=== PATIENT | female | born 1995 | race African-American/Black ===

== ENCOUNTER 2017-06-21 15:27 | Emergency (ER) | payer BC ==
--- NOTE | 2017-06-21 17:04 | RADIOLOGY REPORT (SQ) ---
EXAM DESCRIPTION: KNEE LEFT 3 VIEWS COMPLETED DATE/TIME: 06/21/2017 4:50 pm REASON FOR STUDY: knee pain from fall COMPARISON: None. NUMBER OF VIEWS: Three views. TECHNIQUE: AP, lateral, and sunrise patella radiographic images acquired of the left knee. LIMITATIONS: None. FINDINGS: MINERALIZATION: Normal. BONES: No dislocation. Mild undulation in the medial femoral condylar articular surface without scle rosis, probable osteochondral injury. JOINT: No effusion. SOFT TISSUES: No soft tissue swelling. No radio-opaque foreign body. OTHER: No other significant finding. IMPRESSION: Moderate joint effusion. Mild undulation in the medial femoral condylar articular surf monae without sclerosis, probable osteochondral injury. TECHNICAL DOCUMENTATION: JOB ID: [id number] [employer]- All Rights Reserved
[2017-06-21] MEDS ORDERED: IBUPROFEN 800 MG TABLET PO ONE (17:50)
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
[2017-06-21 18:22] VITALS: BP 136/89
== END 2017-06-21 18:17 | disposition home or self-care (01) ==
LOC: ER 15:27
DX: S89.91XA Unspecified injury of right lower leg, initial encounter (principal); M25.561 Pain in right knee; X50.3XXA Overexertion from repetitive movements, initial encounter
CPT/HCPCS: 99283

== ENCOUNTER → 2017-07-01 | Outpatient (CLI) | payer BC ==
--- NOTE | 2017-07-02 14:12 | RADIOLOGY REPORT (SQ) ---
EXAM DESCRIPTION: MRI LT LOWER JOINT WITHOUT COMPLETED DATE/TIME: 07/01/2017 5:39 pm REASON FOR STUDY: SPRAIN OF ANTERIOR CRUCIATE LIGAMENT OF LEFT KNEE, INITIAL ENCOUNTER S43.52XA SPR AIN OF LEFT ACROMIOCLAVICULAR JOINT, INITIAL ENC COMPARISON: Radiographs 06/21/2017. TECHNIQUE: Leftknee images acquired and stored on PACS. Multiplanar images include fat sensitive se quences as T1, water sensitive sequences as FST2 or STIR, cartilage sensitive sequences as FSPD, and gradient echo sequences. LIMITATIONS: None. FINDINGS: JOINT AND BURSAE: Moderate to large joint effusion. Potential dependent debris in the ten nt. BONE CORTEX AND MARROW: Contusion tracking to subchondral bone in the lateral femoral condyle, mild i mpaction deformity here. Contusion also tracks to the posterior aspect of the lateral tibial plateau . ACL: Completely disrupted. Minimal proximal and distal fibers seen, but the majority of the region o f the ligament is replaced by edema. PCL: Intact. MCL: Ligament intact but regional superficial edema. Likely grade 1 sprain. LCL: Intact. MEDIAL MENISCUS: No tears. No abnormal signal. LATERAL MENISCUS: No tears. No abnormal signal. MEDIAL COMPARTMENT: Cartilage preserved. No bone bruises or reactive marrow edema. No osteophytes. LATERAL COMPARTMENT: As above. No discrete chondral defects. PATELLA: No chondromalacia. No subchondral cysts. Medial and lateral retinacula intact. EXTENSOR MECHANISM: Generally intact patellar and quadriceps tendons. Minimal distal patellar tendin osis with some associated enthesopathy suggested. SOFT TISSUES: Adjacent muscles and subcutaneous tissues normal. Normal flow void in popliteal artery and vein. OTHER: No other significant finding. IMPRESSION: 1. Complete ACL disruption with associated lateral compartment contusions and mild impac tion fracture in the lateral femoral condyle. 2. Low-grade MCL sprain. 3. PCL, lateral collateral ligament complex and menisci look intact. TECHNICAL DOCUMENTATION: JOB ID: [id number] [employer]- All Rights Reserved
== END ==
LOC: RAD 16:34
PROVIDERS: ATTEND Family Medicine
DX: S83.512A Sprain of anterior cruciate ligament of left knee, initial encounter (principal); X58.XXXA Exposure to other specified factors, initial encounter; Y93.9 Activity, unspecified; Y92.9 Unspecified place or not applicable; Y99.9 Unspecified external cause status

== ENCOUNTER 2017-07-08 12:24 | Emergency (ER) | payer OTHER, BC ==
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
[2017-07-08 14:48] VITALS: BP 139/91
== END 2017-07-08 14:43 | disposition home or self-care (01) ==
LOC: ER 12:24
DX: M79.605 Pain in left leg (principal); M79.602 Pain in left arm; M25.569 Pain in unspecified knee; M53.3 Sacrococcygeal disorders, not elsewhere classified; M79.1 Myalgia; V49.40XA Driver injured in collision with unspecified motor vehicles in traffic accident, initial encounter; Z88.0 Allergy status to penicillin
CPT/HCPCS: 72220; 99284

== ENCOUNTER 2017-07-28 17:04 | Emergency (ER) | payer BC, OTHER ==
[2017-07-28] MEDS ORDERED: IBUPROFEN 800 MG TABLET PO ONE (19:13)
[2017-07-28] MEDS ORDERED: HYDROCODONE/ACETAMINOPHEN 5-325 MG 6 TAB/DSPK PO PRN (19:13)
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
[2017-07-28 19:45] VITALS: BP 143/84
== END 2017-07-28 19:43 | disposition home or self-care (01) ==
LOC: ER 17:04
DX: S83.92XA Sprain of unspecified site of left knee, initial encounter (principal); W19.XXXA Unspecified fall, initial encounter; M25.562 Pain in left knee; R03.0 Elevated blood-pressure reading, without diagnosis of hypertension
CPT/HCPCS: 99283

== ENCOUNTER → 2017-09-09 | Outpatient (CLI) | payer BC ==
[2017-09-09 15:25] LABS: BACTERIA (WET MOUNT) 3+ BACTERIA SEEN; EPITHELIALS (WET MOUNT) 3+ EPITHELIALS SEEN; T.VAGINALIS (WET MOUNT) NO TRICHOMONAS SEEN; WBCS (WET MOUNT) RARE WBCS SEEN; YEAST (WET MOUNT) NO YEAST SEEN
[2017-09-09 16:50] LABS: CHLAM PCR NOT DETECTED (NOT DETECT); GON PCR NOT DETECTED (NOT DETECT)
== END ==
LOC: MERGE 15:10 → LAB 15:10
PROVIDERS: ATTEND Nurse Practitioner Acute Care
DX: N89.8 Other specified noninflammatory disorders of vagina (principal); R30.0 Dysuria
CPT/HCPCS: 87086; 87088; 87186; 87210; 87491; 87591

== ENCOUNTER 2018-04-03 16:19 | Emergency (ER) | payer OTHER, BC ==
[2018-04-03] MEDS ORDERED: KETOROLAC TROMETHAMINE INJ/PF 30 MG/1 ML SDV IM ONE (18:00)
[2018-04-03] MEDS ORDERED: CYCLOBENZAPRINE HCL 10 MG TABLET PO ONE (18:01)
--- NOTE | 2018-04-03 18:07 | ER Document Report ---
ED General - General Chief Complaint: Back Pain Stated Complaint: BACK PAIN Time Seen by Provider: 04/03/18 17:26 Mode of Arrival: Ambulatory Information source: Patient Notes: Patient is an otherwise healthy 22-year-old female who presents with low back pain. 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 Patient denies any radiation of the pain, denies any numbness or tingling. Patient further denies any urinary symptoms or fever. TRAVEL OUTSIDE OF THE [place] IN LAST 30 DAYS: No - Related Data Allergies/Adverse Reactions: Penicillins Allergy (Verified 07/28/17 17:11) Past Medical History - General Information source: Patient - Social History Smoking Status: Never Smoker Chew tobacco use (# tins/day): No Drug Abuse: None Lives with: Family Family History: Reviewed & Not Pertinent Patient has suicidal ideation: No Patient has homicidal ideation: No - Medical History Medical History: Negative Renal/ Medical History: Denies: Hx Peritoneal Dialysis Surgical Hx: Negative - Immunizations Immunizations up to date: Yes Review of Systems - Review of Systems Constitutional: No symptoms reported EENT: No symptoms reported Cardiovascular: No symptoms reported Respiratory: No symptoms reported Gastrointestinal: No symptoms reported Genitourinary: No symptoms reported Female Genitourinary: No symptoms reported Musculoskeletal: See HPI Skin: No symptoms reported Hematologic/Lymphatic: No symptoms reported Neurological/Psychological: No symptoms reported Physical Exam - Vital signs Vitals: Temp Pulse Resp BP Pulse Ox 99.5 F 98 18 124/81 98 04/03/18 16:23 04/03/18 16:23 04/03/18 16:23 04/03/18 16:23 04/03/18 16:23 - Notes Notes: PHYSICAL EXAMINATION: GENERAL: Well-appearing, well-nourished and in no acute distress. HEAD: Atraumatic, normocephalic. EYES: Pupils equal round and reactive to light, extraocular movements intact, conjunctiva are normal. ENT: Nares patent, oropharynx clear without exudates. Moist mucous membranes. NECK: Normal range of motion, supple without lymphadenopathy LUNGS: Breath sounds clear to auscultation bilaterally and equal. No wheezes rales or rhonchi. HEART: Regular rate and rhythm without murmurs ABDOMEN: Soft, nontender, nondistended abdomen. No guarding, no rebound. No masses appreciated. Female : deferred Musculoskeletal: Normal range of motion, no pitting or edema. No cyanosis. Tenderness to palpation to bilateral paraspinous muscles. No tenderness on palpation over the lumbar spine. NEUROLOGICAL: Cranial nerves grossly intact. Normal speech, normal gait. Normal sensory, motor exams PSYCH: Normal mood, normal affect. SKIN: Warm, Dry, normal turgor, no rashes or lesions noted. Course - Re-evaluation Re-evalutation: Patient's complaint of low back pain and events surrounding it are consistent with musculoskeletal strain. Will place patient on muscle relaxer and pain medication and reevaluate. Patient reports reduction of pain after administration of IM Toradol and p.o. Flexeril. Patient will be discharged home with instructions for managing a lumbar strain. Patient will be encouraged to follow-up with her primary care provider as well as Workmen's Comp. provider for further direction. - Vital Signs Vital signs: Temp Pulse Resp BP Pulse Ox 99 F 88 16 132/82 H 99 04/03/18 18:40 04/03/18 18:40 04/03/18 18:40 04/03/18 18:40 04/03/18 18:40 Discharge - Discharge Clinical Impression: Musculoskeletal strain Condition: Stable Disposition: HOME, SELF-CARE Additional Instructions: Muscle Strain You have strained a muscle -- torn the fibers within the muscle. This often occurs with strenuous exertion, or during an injury that suddenly stretches the muscle. The seriousness of a strain varies. Some strains heal within days, others cause problems for months. X-rays cannot show a muscle strain. X-rays are taken only if symptoms suggest that a fracture could be present. The usual treatment of a muscle strain is rest and ice packs. Sometimes, a sling, splint, or crutches may be necessary to rest the muscle. The muscle can be used again once pain subsides. Severe strains require a special exercise and stretching program to prevent permanent stiffness and disability. Your doctor will advise you if this will be necessary. Call the doctor immediately if pain or swelling becomes severe, or if numbness or discoloration develop. LOW BACK PAIN: Three out of every four people will have an episode of disabling back pain during their lifetime. Most commonly the pain is due to straining of the muscles and ligaments in the low back. Usual treatment includes: (1) Rest on a firm surface. Avoid lying on your stomach. (2) Ice pack the painful area. After a few days, gentle heat may be used intermittently to relax the area, or ice packs can be continued. (3) Medication may be needed -- muscle relaxers and antiinflammatory medicines are commonly used. (4) As the back improves, exercises are prescribed to strengthen the back and abdominal muscles. Your doctor will advise you on the proper care for your back at each stage in your recovery. You may be better in a few days -- or healing may take several weeks. If new symptoms of a "herniated disc" (radiation of pain, numbness, or tingling down the back of the leg or weakness in the leg) occur, you should be re-examined. Further testing may be necessary. MUSCLE RELAXERS: Muscle relaxing medications are usually prescribed for acute muscle spasm or injury to the neck and back. They are often combined with antiinflammatory pain medication for increased relief. You may stop the muscle relaxer when the pain and stiffness have improved. Start the medication again if spasms recur. Muscle relaxers may cause drowsiness, especially with the first dose. Do not operate machinery or drive while under the effects of the medication. Most muscle relaxers last up to 24 hours. Do not combine the medication with alcohol. ICE PACKS: Apply ice packs frequently against the painful area. Many different schedules are recommended, such as "20 minutes on, 20 minutes off" or "one hour ice, two hours rest." If you need to work, you may need to go longer between ice treatments. You should plan to have the area ice packed AT LEAST one fourth of the time. The ice should be applied over the wrap, tape, or splint, or over a layer of cloth -- not directly against the skin. Some ice bags have a built-in cloth and can be put directly on the skin. WARM PACKS: After approximately two days, apply gentle heat (such as a heating pad or hot water bottle) for about 20 to 30 minutes about every two hours -- at least four times daily. Warmth and elevation will help you make a more rapid recovery , and will ease the pain considerably. Do not use HOT heat, and never apply heat for longer than 30 minutes. The continuous heat can invisibly damage skin and muscles -- even when no burn is seen on the surface. Damaged muscles can make you MORE sore. FOLLOW-UP CARE: If you have been referred to a physician for follow-up care, call the physician s office for an appointment as you were instructed or within the next two days. If you experience worsening or a significant change in your symptoms, notify the physician immediately or return to the Emergency Department at any time for re-evaluation. Prescriptions: Cyclobenzaprine HCl [Flexeril 10 mg Tablet] 10 mg PO TIDP PRN 20 Days #15 tab PRN Reason: Referrals: VIKA BONILLA NP [Primary Care Provider] - Follow up as needed
[2018-04-03 18:43] VITALS: BP 132/82
== END 2018-04-03 18:40 | disposition home or self-care (01) ==
LOC: ER 16:19
DX: T14.8XXA Other injury of unspecified body region, initial encounter (principal); M54.5 Low back pain; X50.9XXA Other and unspecified overexertion or strenuous movements or postures, initial encounter; Y93.F2 Activity, caregiving, lifting; Y99.0 Civilian activity done for income or pay; Z88.0 Allergy status to penicillin
CPT/HCPCS: 99283; 96372; J1885

== ENCOUNTER 2018-08-05 00:13 | Emergency (ER) | payer OTHER, BC ==
[2018-08-05 00:29] VITALS: BP 132/88
[2018-08-05] MEDS ORDERED: KETOROLAC TROMETHAMINE INJ/PF 30 MG/1 ML SDV IM ONE (00:50)
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
--- NOTE | 2018-08-05 01:49 | RADIOLOGY REPORT (SQ) ---
EXAM DESCRIPTION: XR SHOULDER RIGHT 2 OR MORE VIEWS COMPLETED DATE/TME: 08/05/2018 00:50 CLINICAL HISTORY: 22 years, Female, trauma COMPARISON: None. NUMBER OF VIEWS: TECHNIQUE: LIMITATIONS: None. FINDINGS: No fracture or dislocation. The acromioclavicular joint appears intact. IMPRESSION: No fracture or dislocation. 2011 [employer]- All Rights Reserved
== END 2018-08-05 02:33 | disposition home or self-care (01) ==
LOC: ER 00:13
DX: S16.1XXA Strain of muscle, fascia and tendon at neck level, initial encounter (principal); M54.2 Cervicalgia; M25.511 Pain in right shoulder; V89.2XXA Person injured in unspecified motor-vehicle accident, traffic, initial encounter
CPT/HCPCS: 99284; 96372; 73000; 73030; 72125; J1885

== ENCOUNTER 2018-11-07 16:34 | Emergency (ER) | payer BC ==
--- NOTE | 2018-11-07 17:20 | RADIOLOGY REPORT (SQ) ---
EXAM DESCRIPTION: KNEE LEFT 4 VIEW COMPLETED DATE/TIME: 11/07/2018 4:53 pm REASON FOR STUDY: Shut L knee in car door/twisted knee. COMPARISON: None. EXAM PARAMETERS: NUMBER OF VIEWS: Four views. TECHNIQUE: AP, lateral and 2 oblique radiographic images acquired of the left knee. LIMITATIONS: None. FINDINGS: MINERALIZATION: Normal. BONES: No acute fracture or dislocation. ACL reconstruction hardware appears intact. . JOINTS: No effusion. SOFT TISSUES: No significant soft tissue swelling. No radiopaque foreign body. OTHER: No other significant finding. IMPRESSION: NO FRACTURE. TECHNICAL DOCUMENTATION: JOB ID: [id number] [place]-72 2010 [employer]- All Rights Reserved Reading location - IP/workstation name: [email or web address]
[2018-11-07] MEDS ORDERED: ACETAMINOPHEN 325 MG TABLET PO ONE (18:57)
--- NOTE | 2018-11-07 19:03 | ER Document Report ---
HPI - HPI Patient complains to provider of: L knee injury Time Seen by Provider: 11/07/18 18:39 Pain Level: 3 Context: Pleasant 23-year-old female with history of L ACL repair in 2018 presents with left knee pain after closing her car door on it. Patient states she is able to ambulate on it and was not going to come to the emergency department but was concerned about the integrity of her ACL repair. She complains of lateral left knee pain, "tightness", has no other complaints - CONSTITUTIONAL Constitutional: DENIES: Fever, Chills - EENT EENT: DENIES: Sore Throat, Ear Pain, Eye problems - NEURO Neurology: DENIES: Headache, Weakness, Vision blurred, Dizzinesss / Vertigo - CARDIOVASCULAR Cardiovascular: DENIES: Chest pain - RESPIRATORY Respiratory: DENIES: Trouble Breathing, Coughing - GASTROINTESTINAL Gastrointestinal: DENIES: Abdominal Pain, Black / Bloody Stools - URINARY Urinary: DENIES: Dysuria, Urgency, Frequency - REPRODUCTIVE Reproductive: DENIES: : - MUSCULOSKELETAL Musculoskeletal: REPORTS: Extremity pain - Left knee Past Medical History - Social History Smoking Status: Never Smoker Frequency of alcohol use: Occasional Drug Abuse: None Family History: Reviewed & Not Pertinent Patient has suicidal ideation: No Patient has homicidal ideation: No Renal/ Medical History: Denies: Hx Peritoneal Dialysis Past Surgical History: Reports: Hx Orthopedic Surgery - left knee - Immunizations Immunizations up to date: Yes Vertical Provider Document - CONSTITUTIONAL Notes: PHYSICAL EXAMINATION: Reviewed vital signs and charting by RN GENERAL: Alert, interacts well. No acute distress. HEAD: Normocephalic, atraumatic. EYES: Pupils equal, round. Extraocular movements intact. EXTREMITIES: Moves all 4 extremities spontaneously. Mild edema left lateral knee with tenderness to palpation over incision site, normal anterior drawer test, mild pain elicited with valgus stress otherwise normal knee exam. BACK: no cervical, thoracic, lumbar midline tenderness. No saddle anesthesia, normal distal neurovascular exam. NEUROLOGICAL: Alert . Normal speech. PSYCH: Normal affect, normal mood. SKIN: Warm, dry, normal turgor. No rashes or lesions noted. - INFECTION CONTROL TRAVEL OUTSIDE OF THE [place] IN LAST 30 DAYS: No Course - Re-evaluation Re-evalutation: 11/07/18 19:00 X-ray negative for fracture, dislocation and ACL repair seems to be in tact. Patient was only concerned about that. She is ambulating and has crutches and a brace at home. I will give her a dose of Tylenol and she is safe and stable for discharge with follow-up with her orthopedic surgeon. - Vital Signs Vital signs: Temp Pulse Resp BP Pulse Ox 99.6 F 98 15 150/88 H 99 11/07/18 16:40 11/07/18 16:40 11/07/18 16:40 11/07/18 16:40 11/07/18 16:40 Discharge - Discharge Clinical Impression: Left knee injury Qualifiers: Encounter type: initial encounter Qualified Code(s): S89.92XA - Unspecified injury of left lower leg, initial encounter Condition: Good Disposition: HOME, SELF-CARE Instructions: Ice & Elevation ([facility]), Sprained Knee ([facility]) Additional Instructions: You are seen in the emergency department this afternoon for her knee 3. Her ACL repair seems to be intact. There is no fracture or dislocation of the left knee. He most likely suffered from a bruise or some very mild soft tissue injury. Please follow-up with your orthopedic surgeon and use your ice machine as needed to help with pain and swelling. You can take Tylenol 1000 mill grams every 6 hours or Motrin 600 mg every 6 hours for pain and inflammation. If your knee becomes hot and red or you are unable to move the knee at all please merely return to the emergency department. If you develop fever greater than 101 degrees please merely return to the emergency department. Referrals: VIKA BONILLA NP [Primary Care Provider] - Follow up as needed REYNALDO GARCIA MD [NO LOCAL MD] - Follow up as needed
[2018-11-07 19:29] VITALS: BP 143/80
== END 2018-11-07 19:32 | disposition home or self-care (01) ==
LOC: ER 16:34
DX: S89.92XA Unspecified injury of left lower leg, initial encounter (principal); M25.562 Pain in left knee; W22.8XXA Striking against or struck by other objects, initial encounter; Z98.890 Other specified postprocedural states
CPT/HCPCS: 99283

== ENCOUNTER 2019-02-27 09:50 | Emergency (ER) | payer BC ==
--- NOTE | 2019-02-27 10:14 | ER Document Report ---
ED Medical Screen (RME) - General Chief Complaint: Abdominal Pain Stated Complaint: ABDOMINAL PAIN Time Seen by Provider: 02/27/19 10:09 Primary Care Provider: VIKA BONILLA NP [Primary Care Provider] - Follow up as needed TRAVEL OUTSIDE OF THE [place] IN LAST 30 DAYS: No - HPI Notes: 02/27/19 10:12 Patient is a 23-year-old female with no significant past medical history who presents complaining of lower pelvic pain primarily to the middle over the past several days that has been relatively constant and does not radiate. Patient states that it almost mimics menstrual cramping, but she has not had any vaginal bleeding/odor/discharge. Last menstrual cycle was February 02. She is eating and drinking without difficulties. She is urinating normally. Patient states that she did have a bowel movement yesterday which was described as soft, but before that had been 3 days. Denies ALONZO, fever, neck pain, URI, CP, SOB, dysuria, back pain, or rash. I have treated and performed a rapid initial assessment of this patient. A comprehensive ED assessment and evaluation of the patient, analysis of test results and completion of medical decision making process will be conducted by additional ED providers. PHYSICAL EXAMINATION: GENERAL: Well-appearing, well-nourished and in no acute distress. A&Ox4. Answers questions appropriately. LUNGS: Breath sounds clear to auscultation bilaterally and equal. No wheezes rales or rhonchi. HEART: Regular rate and rhythm without murmurs, rubs, gallops. ABDOMEN: Soft, nondistended abdomen. No guarding, no rebound. Normal bowel sounds present. No CVA tenderness bilaterally. + lower middle suprapubic/pelvic tenderness (cannot elicit thorough abd exam w/o bed, however). - Related Data Allergies/Adverse Reactions: Penicillins Allergy (Verified 07/28/17 17:11) Past Medical History Renal/ Medical History: Denies: Hx Peritoneal Dialysis Past Surgical History: Reports: Hx Orthopedic Surgery - left knee - Immunizations Immunizations up to date: Yes Physical Exam - Vital signs Vitals: Temp Pulse Resp BP Pulse Ox 98.6 F 100 16 142/83 H 99 02/27/19 10:04 02/27/19 10:04 02/27/19 10:04 02/27/19 10:04 02/27/19 10:04 Course - Vital Signs Vital signs: Temp Pulse Resp BP Pulse Ox 98.6 F 100 16 142/83 H 99 02/27/19 10:04 02/27/19 10:04 02/27/19 10:04 02/27/19 10:04 02/27/19 10:04 Doctor's Discharge - Discharge Referrals: VIKA BONILLA NP [Primary Care Provider] - Follow up as needed
[2019-02-27 10:41] LABS: ABSOLUTE BASOPHILS # (AUTO) 0.1 10^3/uL (0.0-0.2); ABSOLUTE EOSINOPHILS # (AUTO) 0.1 10^3/uL (0.0-0.6); ABSOLUTE LYMPHOCYTES (AUTO) 1.9 10^3/uL (0.5-4.7); ABSOLUTE MONOCYTES (AUTO) 0.7 10^3/uL (0.1-1.4); ABSOLUTE NEUT (AUTO) 6.1 10^3/uL (1.7-8.2); BASOPHILS % (AUTO) 1.1 % (0-2); EOSINOPHILS % (AUTO) 0.6 % (0-6); HEMATOCRIT 30.6 % (36.0-47.0); HEMOGLOBIN 9.7 g/dL (12.0-15.5); MEAN CORPUSCULAR HEMOGLOBIN 22.6 pg (27.0-33.4); MEAN CORPUSCULAR HGB CONC 31.6 g/dL (32.0-36.0); MEAN CORPUSCULAR VOLUME 71 fl (80-97); MONOCYTES % (AUTO) 7.6 % (3-13); PLATELET COUNT 566 10^3/uL (150-450); RED BLOOD COUNT 4.29 10^6/uL (3.72-5.28); RED CELL DISTRIBUTION WIDTH 17.1 % (11.5-14.0); SEGMENTED NEUTROPHILS % (AUTO) 68.7 % (42-78); TOTAL CELLS COUNTED % (AUTO) 100 %; WHITE BLOOD COUNT 8.8 10^3/uL (4.0-10.5)
--- NOTE | 2019-02-27 10:43 | ER Document Report ---
ED General - General Chief Complaint: Abdominal Pain Stated Complaint: ABDOMINAL PAIN Time Seen by Provider: 02/27/19 10:09 Primary Care Provider: VIKA BONILLA NP [Primary Care Provider] - Follow up as needed TRAVEL OUTSIDE OF THE [place] IN LAST 30 DAYS: No - HPI Notes: Patient is a 23-year-old female that presents to the emergency department for chief complaint of pelvic pain. Patient reports pain in the middle of her pelvis for the last few days. She states it was constant on Wednesday and Wednesday and became more intermittent last night. Patient did have relief temporarily yesterday after using a suppository and having a large bowel movement. She states that she had not had a bowel movement for 4 or 5 days prior to that. She denies history of severe constipation issues in the past. She states she is now going regularly and has a little bit of diarrhea from the suppository and the pain had reoccurred. She denies any vaginal bleeding or discharge. She denies any vomiting, nausea and fevers. Patient is sexually active and not on control. She had a LMP on 02/02/2019. She has not taken a home test. She has no history of prior pregnancies and states that she is not sure if she is today. Past Medical History: Negative Past Surgical History: Negative Social History: Denies drugs alcohol and tobacco Family History: Reviewed and noncontributory for presenting illness Allergies: Reviewed, see documented allergy list. REVIEW OF SYSTEMS: CONSTITUTIONAL : No fever No chills No diaphoresis No recent illness EENT: No vision changes No congestion No sore throat CARDIOVASCULAR: No chest pain No palpitations RESPIRATORY: No shortness of breath No cough No difficulty breathing GASTROINTESTINAL: No abdominal pain No nausea No vomiting No diarrhea GENITOURINARY: Pelvic pain No dysuria No hematuria No difficulty urinating MUSCULOSKELETAL: No back pain No leg pain No arm pain SKIN: No rashes No lesions LYMPHATIC: No swollen, enlarged glands. NEUROLOGICAL: No lightheadedness No headache No weakness No paresthesias PSYCHIATRIC: No anxiety No depression PHYSICAL EXAMINATION: Vital signs reviewed, nursing noted reviewed. GENERAL: Well-appearing, well-nourished and in no acute distress. HEAD: Atraumatic, normocephalic. EYES: Eyes appear normal, extraocular movements intact, sclera anicteric, conjunctiva are normal. ENT: nares patent, oropharynx clear without exudates. Moist mucous membranes. NECK: Normal range of motion, supple without lymphadenopathy LUNGS: Breath sounds clear to auscultation bilaterally and equal. No wheezes rales or rhonchi. HEART: Regular rate and rhythm without murmurs ABDOMEN: Soft, suprapubic tenderness, normoactive bowel sounds. No rebound, guarding, or rigidity. No masses appreciated. : no external vaginal lesions. No cervical motion tenderness. No adnexal tenderness or fullness. Mild tenderness to palpation of the uterus which is soft and midline. Moderate white vaginal discharge EXTREMITIES: Nontender, good range of motion, no pitting or edema. NEUROLOGICAL: No focal neurological deficits. Moves all extremities spontaneously Motor and sensory grossly intact on exam. PSYCH: Normal mood, normal affect. SKIN: Warm, Dry, normal turgor, no rashes or lesions noted on exposed skin - Related Data Allergies/Adverse Reactions: Penicillins Allergy (Verified 07/28/17 17:11) Past Medical History - Social History Smoking Status: Never Smoker Frequency of alcohol use: None Drug Abuse: None Family History: Reviewed & Not Pertinent Patient has suicidal ideation: No Patient has homicidal ideation: No Renal/ Medical History: Denies: Hx Peritoneal Dialysis Past Surgical History: Reports: Hx Orthopedic Surgery - left knee - Immunizations Immunizations up to date: Yes Physical Exam - Vital signs Vitals: Temp Pulse Resp BP Pulse Ox 98.6 F 100 16 142/83 H 99 02/27/19 10:04 02/27/19 10:04 02/27/19 10:04 02/27/19 10:04 02/27/19 10:04 Course - Re-evaluation Re-evalutation: 02/27/19 10:42 Vitals reviewed. Nursing notes reviewed. Patient is well-appearing and in no acute distress. I did offer her Tylenol or Motrin for her pain which she has declined stating that she does not feel she is requiring pain medication c urrently. Pelvic exam was performed and her tenderness is located over her uterus. She does have some vaginal discharge and cultures have been obtained. 02/27/19 12:46 Patient is negative for gonorrhea and chlamydia. She does have bacterial vaginitis which will be treated with Flagyl. She is not currently . Ultrasound shows uterine fibroids without ovarian torsion or tubo-ovarian absc ess. Patient was anemic on blood work with no current active bleeding. She is not tachycardic or having near syncopal spells. I suspect her anemia is chronic and not acute. She was told to follow with primary care for further studies regarding her anemia. Patient was referred to gynecology for follow-up as well. She is stable at discharge. Laboratory 02/27/19 02/27/19 02/27/19 10:00 10:25 10:25 WBC 8.8 RBC 4.29 Hgb 9.7 L Hct 30.6 L MCV 71 L MCH 22.6 L MCHC 31.6 L RDW 17.1 H Plt Count 566 H Seg Neutrophils % 68.7 Lymphocytes % 22.0 Monocytes % 7.6 Eosinophils % 0.6 Basophils % 1.1 Absolute Neutrophils 6.1 Absolute Lymphocytes 1.9 Absolute Monocytes 0.7 Absolute Eosinophils 0.1 Absolute Basophils 0.1 Sodium 137.6 Potassium 4.7 Chloride 103 Carbon Dioxide 25 Anion Gap 10 BUN 12 Creatinine 0.68 Est GFR ( Amer) > 60 Est GFR (Non-Af Amer) > 60 Glucose 94 Calcium 9.1 Total Bilirubin 0.5 Direct Bilirubin 0.2 Neonat Total Bilirubin Not Reportable Neonat Direct Bilirubin Not Reportable Neonat Indirect Bili Not Reportable AST 25 ALT 31 Alkaline Phosphatase 88 Total Protein 7.3 Albumin 3.9 Urine Color YELLOW Urine Appearance CLOUDY Urine pH 5.0 Ur Specific [place] 1.031 Urine Protein 30 H Urine Glucose (UA) NEGATIVE Urine Ketones NEGATIVE Urine Blood NEGATIVE Urine Nitrite NEGATIVE Urine Bilirubin NEGATIVE Urine Urobilinogen 2.0 H Ur Leukocyte Esterase TRACE H Urine WBC (Auto) 2 Urine RBC (Auto) 3 Urine Bacteria (Auto) TRACE Squamous Epi Cells Auto 48 Urine Mucus (Auto) MOD Urine Ascorbic Acid NEGATIVE Urine HCG, Qual NEGATIVE Epi Cells (Wet Prep) Bacteria (Wet Prep) Trichomonas (Wet Prep) Vaginal WBC Vaginal RBC Vaginal Yeast Chlamydia DNA (PCR) N.gonorrhoeae DNA (PCR) 02/27/19 02/27/19 10:40 10:40 WBC RBC Hgb Hct MCV MCH MCHC RDW Plt Count Seg Neutrophils % Lymphocytes % Monocytes % Eosinophils % Basophils % Absolute Neutrophils Absolute Lymphocytes Absolute Monocytes Absolute Eosinophils Absolute Basophils Sodium Potassium Chloride Carbon Dioxide Anion Gap BUN Creatinine Est GFR ( Amer) Est GFR (Non-Af Amer) Glucose Calcium Total Bilirubin Direct Bilirubin Neonat Total Bilirubin Neonat Direct Bilirubin Neonat Indirect Bili AST ALT Alkaline Phosphatase Total Protein Albumin Urine Color Urine Appearance Urine pH Ur Specific [place] Urine Protein Urine Glucose (UA) Urine Ketones Urine Blood Urine Nitrite Urine Bilirubin Urine Urobilinogen Ur Leukocyte Esterase Urine WBC (Auto) Urine RBC (Auto) Urine Bacteria (Auto) Squamous Epi Cells Auto Urine Mucus (Auto) Urine Ascorbic Acid Urine HCG, Qual Epi Cells (Wet Prep) 4+ EPITHELIALS SEEN Bacteria (Wet Prep) 4+ BACTERIA SEEN Trichomonas (Wet Prep) NO TRICHOMONAS SEEN Vaginal WBC 2+ WBCS SEEN Vaginal RBC FEW RBCS SEEN Vaginal Yeast NO YEAST SEEN Chlamydia DNA (PCR) NOT DETECTED N.gonorrhoeae DNA (PCR) NOT DETECTED Transvaginal US 02/27/19 10:14 IMPRESSION: Uterine fibroids. - Vital Signs Vital signs: Temp Pulse Resp BP Pulse Ox 98.6 F 100 16 142/83 H 99 02/27/19 10:04 02/27/19 10:04 02/27/19 10:04 02/27/19 10:04 02/27/19 10:04 - Laboratory Result Diagrams: 02/27/19 10:25 02/27/19 10:25 Laboratory results interpreted by me: 02/27/19 02/27/19 10:00 10:25 Hgb 9.7 L Hct 30.6 L MCV 71 L MCH 22.6 L MCHC 31.6 L RDW 17.1 H Plt Count 566 H Urine Protein 30 H Urine Urobilinogen 2.0 H Ur Leukocyte Esterase TRACE H Discharge - Discharge Clinical Impression: Bacterial vaginitis, Elevated blood pressure reading Anemia Qualifiers: Anemia type: unspecified type Qualified Code(s): D64.9 - Anemia, unspecified Uterine fibroid Qualifiers: Uterine leiomyoma location: unspecified location Qualified Code(s): D25.9 - Leiomyoma of uterus, unspecified Condition: Stable Disposition: HOME, SELF-CARE Instructions: Anemia ([facility]), Vaginosis, Bacterial ([facility]) Additional Instructions: Please return to the emergency department if you have any worsening, or concern of your symptoms. Please return to the emergency department if you develop chest pain, difficulty breathing, severe abdominal pain, or ongoing vomiting. Please follow-up with your primary care physician in 2-3 days and any other recommended physicians. If prescribed, take all medications as directed. If you have any questions or concerns do not hesitate to return the emergency department for evaluation. Your blood pressure was elevated today, you need to have it rechecked at a primary care doctor's office to confirm elevated blood pressure and to evaluate whether you need to be on blood pressure medication. You were anemic today and are requiring further studies to check your iron levels and causes of anemia. There were uterine fibroids seen on your ultrasound today. This may be causing discomfort in your pelvic region. They can cause increased amounts of bleeding during menstrual cycles. They are benign but should be followed with [facility] Prescriptions: Metronidazole [Flagyl 500 mg Tablet] 500 mg PO BID #14 tablet Forms: Elevated Blood Pressure Referrals: [facility] [Provider Group] - Follow up in 3-5 days VIKA BONILLA NP [Primary Care Provider] - Follow up in 3-5 days
[2019-02-27 10:46] LABS: T.VAGINALIS (WET MOUNT) NO TRICHOMONAS SEEN; WBCS (WET MOUNT) 2+ WBCS SEEN; YEAST (WET MOUNT) NO YEAST SEEN
[2019-02-27 10:47] LABS: BACTERIA (WET MOUNT) 4+ BACTERIA SEEN; EPITHELIALS (WET MOUNT) 4+ EPITHELIALS SEEN; RBCS (WET MOUNT) FEW RBCS SEEN
[2019-02-27 10:54] LABS: APPEARANCE,URINE CLOUDY; BILIRUBIN,URINE NEGATIVE (NEGATIVE); GLUCOSE, URINE NEGATIVE (NEGATIVE); KETONES,URINE NEGATIVE (NEGATIVE); LEUKOCYTE ESTERASE,URINE TRACE (NEGATIVE); NITRITE,URINE NEGATIVE (NEGATIVE); PROTEIN,URINE 30 mg/dL (NEGATIVE); URINE SPECIFIC GRAVITY 1.031
[2019-02-27 10:55] LABS: COLOR,URINE YELLOW
[2019-02-27 11:07] LABS: ALANINE AMINOTRANSFERASE 31 U/L (9-52); ALBUMIN 3.9 g/dL (3.5-5.0); ALKALINE PHOSPHATASE 88 U/L (38-126); ANION GAP 10 (5-19); ASPARTATE AMINO TRANSFERASE 25 U/L (14-36); BILIRUBIN,DIRECT 0.2 mg/dL (0.0-0.4); BILIRUBIN,TOTAL 0.5 mg/dL (0.2-1.3); BLOOD UREA NITROGEN 12 mg/dL (7-20); CALCIUM 9.1 mg/dL (8.4-10.2); CARBON DIOXIDE 25 mmol/L (22-30); CHLORIDE 103 mmol/L (98-107); GLUCOSE 94 mg/dL (75-110); POTASSIUM 4.7 mmol/L (3.6-5.0); SODIUM 137.6 mmol/L (137-145); TOTAL PROTEIN 7.3 g/dL (6.3-8.2)
[2019-02-27 12:17] LABS: CHLAM PCR NOT DETECTED (NOT DETECT)
--- NOTE | 2019-02-27 12:34 | RADIOLOGY REPORT (SQ) ---
EXAM DESCRIPTION: U/S NON OB PEL TV W/DOPPLER COMPLETED DATE/TIME: 02/27/2019 12:12 pm REASON FOR STUDY: pelvic pain COMPARISON: None. TECHNIQUE: Dynamic and static grayscale images acquired of the pelvis via transvaginal approach and recorded on PACS. Additional selected color Doppler and spectral images recorded. LIMITATIONS: None. FINDINGS: UTERUS: Heterogeneous. Multiple fibroids. Largest 2 fibroids are 5.5 cm and 5.6 cm, resp ectively. ENDOMETRIAL STRIPE: No focal or generalized thickening. No masses. CERVIX: 2.9 cm. RIGHT OVARY AND DOPPLER: Normal size. No worrisome masses. 12 mm cyst/follicle. Normal arterial vas cular flow without evidence for torsion. LEFT OVARY AND DOPPLER: Normal size. No worrisome masses. Normal arterial vascular flow without evide nce for torsion. FREE FLUID: None noted. OTHER: No other significant finding. MEASUREMENTS: UTERUS: 13.8 x 6.7 x 5.9 cm. ENDOMETRIAL STRIPE: 1.8 cm. RIGHT OVARY: 4.1 x 2 x 2.5 cm. LEFT OVARY: 3.8 x 2.3 x 1.7 cm. IMPRESSION: Uterine fibroids. TECHNICAL DOCUMENTATION: JOB ID: [id number]- All Rights Reserved Rev Reading location - IP/workstation name: [email or web address]
[2019-02-27 13:00] VITALS: BP 127/83
== END 2019-02-27 13:00 | disposition home or self-care (01) ==
LOC: ER 09:50
DX: N76.0 Acute vaginitis (principal); B96.89 Other specified bacterial agents as the cause of diseases classified elsewhere; D25.9 Leiomyoma of uterus, unspecified; D64.9 Anemia, unspecified; R03.0 Elevated blood-pressure reading, without diagnosis of hypertension; R10.2 Pelvic and perineal pain; Z87.19 Personal history of other diseases of the digestive system; Z88.0 Allergy status to penicillin
CPT/HCPCS: 36415; 76830; 80053; 81001; 81025; 85025; 87210; 87491; 87591; 93976; 99284

== ENCOUNTER 2019-10-31 16:35 | Emergency (ER) | payer BC ==
[2019-10-31 16:49] VITALS: BP 125/75
[2019-10-31] MEDS ORDERED: CETIRIZINE 10 MG TABLET PO ONE (18:23)
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
== END 2019-10-31 18:33 | disposition home or self-care (01) ==
LOC: ER 16:35
DX: J30.1 Allergic rhinitis due to pollen (principal); R05 Cough; R09.82 Postnasal drip; H92.09 Otalgia, unspecified ear
CPT/HCPCS: 99283

== ENCOUNTER 2020-03-02 14:33 | Emergency (ER) | payer OTHER, BC ==
[2020-03-02 14:40] VITALS: BP 141/87
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
== END 2020-03-02 16:30 | disposition home or self-care (01) ==
LOC: ER 14:33
DX: S50.12XA Contusion of left forearm, initial encounter (principal); M25.512 Pain in left shoulder; M79.632 Pain in left forearm; M25.562 Pain in left knee; M54.2 Cervicalgia; R51 Headache; V49.40XA Driver injured in collision with unspecified motor vehicles in traffic accident, initial encounter
CPT/HCPCS: 70150; 72052; 99283